=== PATIENT | female | born 1975 | race Caucasian/White ===

== ENCOUNTER → 2019-11-12 | Outpatient (CLI) | payer OTHER ==
[~2019-11-12] VITALS: Ht 157.5 cm; Wt 62.1 kg
[~2019-11-12] MED LIST: APAP/HYDROCODON1 T13 PO; IBU800 M2 PO; MEGESTROL ACETA40 MG PO; [UNRECOGNIZED DRUG - CODE] PO
--- NOTE | 2019-11-17 17:26 | NUR ---
RECEIVED FAXED LAB RESULTS DONE STAT TODAY FROM DR BREEN'S OFFICE. HB=7.1. COPY OF RESULTS TAKEN TO OR FOR ANESTHESIA TO REVIEW. TYPE AND SCREEN ORDERED ON ADMISSION. HX OF MENORRHAGIA.
--- NOTE | 2019-11-18 11:09 | NUR ---
AFTER REVIEWING THE PATIENT'S LAB RESULT, DR. DRAKE, ANESTHESIOLOGIST WANTED THE PATIENT TO HAVE BLOOD TRANSFUSION BEFORE PROCEDURE; CALLING DR. BREEN'S OFFICE AND EUGENIE ANSWERED THE PHONE CALL. EUGENIE WILL NOTIFY DR. BREEN OF THIS ABOVE. AWAITING FOR NEW ORDER FROM DR. BREEN.
--- NOTE | 2019-11-18 15:13 | NUR ---
DR. Tahir BREEN OFFICE CALLED BACK. PATIENT INSTRUCTED BY DOCTOR TO COME IN TONIGHT AND GET ADMITTED FOR BLOOD TRANSFUSION.
[2019-11-19 17:58] LABS: BASOPHIL % 1.2 % (0-2); PLATELET COUNT 385 x10^3mcL (130-400)
[2019-11-19 18:00] LABS: RED CELL DISTRIBUTION WIDTH 25.8 % (11.5-14.5)
[2019-11-19 18:07] LABS: rbc morphology (normal/abnorm) ABNORMAL (NORMAL)
[2019-11-19 21:11] VITALS: BP 120/84
== END | disposition home or self-care (01) ==
LOC: LB 10:00 → OR 11-19 12:00 → DS 11-19 12:00 → EDSTATUS 11-19 12:00 → DS 11-19 18:30
PROVIDERS: ATTEND Obstetrics & Gynecology
DX: N92.0 Excessive and frequent menstruation with regular cycle (principal)
CPT/HCPCS: J2175; J3010; U0003-CS